=== PATIENT | male | born 1995 | race Caucasian/White ===

== ENCOUNTER 2023-11-28 14:50 | Emergency (ER) | payer MEDICAID ==
[~2023-11-28] VITALS: Ht 188 cm; Wt 83.9 kg
[2023-11-28] MEDS: KETOROLAC TROMETHAMINE 15 MG/ML VIAL IV ONE (15:30)
[2023-11-28] MEDS: IV NS 0.9% 1,000 ML BAG IV ONE (15:30)
[2023-11-28] MEDS ORDERED: KETOROLAC TROMETHAMINE 15 MG/ML VIAL ONE (15:40)
[2023-11-28 15:54] LABS: BASOPHILS % (AUTO) 0.4 % (0.0-2.0); EOSINOPHILS # (AUTO) 0.1 K/uL (0.0-0.7); EOSINOPHILS % (AUTO) 0.5 % (0.0-6.0); HEMATOCRIT 44 % (39-51); HEMOGLOBIN 15.4 g/dL (13.5-17.5); LYMPHOCYTES # (AUTO) 1.8 K/uL (0.8-4.8); MEAN CORPUSCULAR HEMOGLOBIN 30 PG (26.0-33.0); MEAN CORPUSCULAR HGB CONC 35 g/dl (31.0-36.0); MEAN CORPUSCULAR VOLUME 85 fL (80-96); MONOCYTES # (AUTO) 1.4 K/uL (0.1-1.30); MONOCYTES % (AUTO) 13.3 % (2.0-12.0); NEUTROPHILS # (AUTO) 7.1 K/uL (1.8-8.9); NEUTROPHILS % (AUTO) 68.8 % (43.0-81.0); PLATELET COUNT (AUTO) 167 K/uL (150-450); RED BLOOD CELL COUNT(AUTO) 5.22 MIL/uL (4.5-6.0); RED CELL DISTRIBUTION WIDTH 13.2 % (11.5-15.0); WHITE BLOOD COUNT (AUTO) 10.4 K/uL (4.3-11.0)
[2023-11-28 16:06] LABS: CALCIUM, SERUM 9.2 mg/dL (8.5-10.1); POTASSIUM 3.7 mmol/L (3.5-5.1)
[2023-11-28 16:23] LABS: APPEARANCE,URINE Clear (CLEAR); BILIRUBIN,URINE Negative (NEGATIVE); BLOOD, URINE Negative Ery/uL (NEGATIVE); COLOR,URINE YELLOW (YELLOW); KETONES,URINE Negative (NEGATIVE); LEUKOCYTE ESTERASE ,URINE Negative (NEGATIVE); NITRITE, URINE Negative (NEGATIVE); PH,URINE 5.5 (5.0-8.0); PROTEIN,URINE Negative (NEGATIVE); UGLUCOSE Negative (NEGATIVE); UROBILINOGEN,URINE 0.2 EU/dL (0.2)
[2023-11-28] MEDS ORDERED: DOXY100C2 PO (16:30)
[2023-11-28] MEDS ORDERED: CEFD300C3 PO (16:30)
[2023-11-28] MEDS ORDERED: CEFTRIAXONE 1GM BAG (ER ONLY) 50 ML IV ONE (16:32)
[2023-11-28] MEDS: CEFTRIAXONE 1GM BAG (ER ONLY) 1 GM/50 ML PIGGYBACK IV ONE (16:33)
[2023-11-28 17:10] VITALS: BP 150/82; TEMP 98; O2SAT 99
[2023-11-30 17:07] LABS: CHLAMYDIA TRACHOMATIS NAA Negative (Negative); NEISSERIA GONORRHOEAE NAA Negative (Negative)
== END 2023-11-28 17:11 | disposition home or self-care (01) ==
LOC: ER 15:13
DX: N45.1 Epididymitis (principal); I88.9 Nonspecific lymphadenitis, unspecified; R10.32 Left lower quadrant pain
CPT/HCPCS: 99285; 74176; 96365; 96361; 96375; 76870; 85025; 80048; 87086; 81003; 36415; 87491; 87591; J7030; J0696; J1885

== ENCOUNTER 2023-12-10 10:12 | Emergency (ER) | payer MEDICAID ==
[~2023-12-10] VITALS: Ht 188 cm; Wt 83.9 kg
[~2023-12-10 10:12] MED LIST: CEFD300C3 PO; DOXY100C2 PO
[2023-12-10] MEDS ORDERED: CEFTRIAXONE 500 MG VIAL ONE (10:46)
[2023-12-10] MEDS ORDERED: AZITHROMYCIN 250 MG TABLET ONE (10:47)
[2023-12-10] MEDS ORDERED: CLIN300C12 PO (10:55)
[2023-12-10] MEDS: AZITHROMYCIN 250 MG TABLET PO ONE (11:01)
[2023-12-10] MEDS: CEFTRIAXONE 500 MG VIAL IM ONE (11:02)
[2023-12-10 11:40] VITALS: BP 144/96; TEMP 98.2; O2SAT 98
== END 2023-12-10 11:41 | disposition home or self-care (01) ==
LOC: ER 10:16
DX: N45.1 Epididymitis (principal); R10.32 Left lower quadrant pain; R59.1 Generalized enlarged lymph nodes; Z60.2 Problems related to living alone
CPT/HCPCS: 99283; 96372; J0696